=== PATIENT | female | born 1995 | race Caucasian/White ===

== ENCOUNTER 2017-04-24 11:46 | Outpatient (CLI) | payer MEDICAID ==
[~2017-04-24] VITALS: Ht 149.9 cm; Wt 50.0 kg
[~2017-04-24 11:46] MED LIST: PREN1TAB60 PO
[2017-04-24 13:38] LABS: HEMATOCRIT 34.5 % (34.6-47.8); HEMOGLOBIN 11.6 g/dL (11.7-16.4); WHITE BLOOD COUNT 8.8 x10^3/uL (3.4-10)
[2017-04-24 14:02] LABS: HIV 1&2 ANTIBODY SCREEN Nonreactive (Nonreactive); HIV-1 p24 ANTIGEN Nonreactive (Nonreactive)
== END 2017-04-24 14:11 | disposition home or self-care (01) ==
LOC: LDOP 11:46
PROVIDERS: ATTEND Obstetrics & Gynecology
DX: O26.892 Other specified pregnancy related conditions, second trimester (principal); R10.9 Unspecified abdominal pain; Z3A.25 25 weeks gestation of pregnancy
CPT/HCPCS: 36415; 59025; 81001; 82731; 85025; 86592; 86703; 86762; 86850; 86900; 87086; 87340; 87899; 99211; G0435; G0463

== ENCOUNTER 2017-07-17 04:12 | Inpatient (IN) | payer MEDICAID ==
[~2017-07-17] VITALS: Ht 175.3 cm; Wt 61.0 kg
[2017-07-17] MEDS ORDERED: OXYTOCIN 10 UNITS/ML, 1ML ONE (04:18)
[2017-07-17] MEDS ORDERED: OXYTOCIN 30U/ 0.9% NaCL 500ML 500 ML ONE (04:18)
[2017-07-17] MEDS ORDERED: NEWBORN KIT ONE (04:49)
[2017-07-17] MEDS ORDERED: IBUPROFEN 600 MG TABLET ONE (04:54)
[2017-07-17] MEDS ORDERED: OXYcodone/APAP 5/325MG TABLET ONE (04:54)
[2017-07-17] MEDS ORDERED: OXYTOCIN 30U/ 0.9% NaCL 500ML 500 ML IV SCH (04:55)
[2017-07-17] MEDS: OXYTOCIN 30U/ 0.9% NaCL 500ML 500 ML IV SCH ×4 (04:55→09:13)
[2017-07-17] MEDS: IBUPROFEN 600 MG TABLET PO PRN ×3 (04:55→21:04)
[2017-07-17] MEDS: OXYcodone/APAP 5/325MG TABLET PO PRN ×2 (04:55→09:47)
[2017-07-17] MEDS ORDERED: LIDOCAINE 1%, 20ML ONE (04:57)
[2017-07-17] MEDS ORDERED: METHYLERGONOVINE 0.2 MG/ML IM PRN (05:00)
[2017-07-17] MEDS ORDERED: OXYTOCIN 10 UNITS/ML, 1ML IM PRN (05:00)
[2017-07-17] MEDS ORDERED: ACETAMINOPHEN 325 MG TABLET PO PRN (05:00)
[2017-07-17] MEDS ORDERED: CALCIUM CARBONATE 500 MG TAB.CHEW PO PRN (05:00)
[2017-07-17] MEDS ORDERED: ONDANSETRON 2MG/ML, 2ML IV PRN (05:00)
[2017-07-17] MEDS ORDERED: OXYcodone IR 5MG TABLET PO PRN (05:00)
[2017-07-17 06:00] LABS: HEMATOCRIT 34.8 % (34.6-47.8); HEMOGLOBIN 11.8 g/dL (11.7-16.4); WHITE BLOOD COUNT 12.4 x10^3/uL (3.4-10)
[2017-07-17 06:16] LABS: BLOOD UREA NITROGEN 11 mg/dL (7-18)
[2017-07-17 06:17] LABS: ASPARTATE AMINO TRANSFERASE 28 U/L (15-37)
[2017-07-17 08:00] VITALS: BP 128/87
[2017-07-17] MEDS: DOCUSATE 100 MG CAPSULE PO PRN ×2 (09:47→21:04)
[2017-07-17] MEDS: PRENATAL VIT/IRON/FA 1 EACH TABLET PO SCH (09:47)
[2017-07-17 12:35] VITALS: BP 120/71
[2017-07-17 16:33] VITALS: BP 117/76
[2017-07-17 20:25] VITALS: BP 145/87
[2017-07-17] MEDS ORDERED: DIPH,PERTUSS(ACELL),TET VAC/PF NC IM-VACC ONE (20:50)
[2017-07-17] MEDS: ACETAMINOPHEN 325 MG TABLET PO PRN (21:04)
[2017-07-18 00:45] VITALS: BP 99/58
[2017-07-18] MEDS: ACETAMINOPHEN 325 MG TABLET PO PRN ×2 (04:07→09:51)
[2017-07-18] MEDS: IBUPROFEN 600 MG TABLET PO PRN ×2 (04:07→13:16)
[2017-07-18 04:10] VITALS: BP 116/70
[2017-07-18 07:30] VITALS: BP 103/60
[2017-07-18] MEDS: PRENATAL VIT/IRON/FA 1 EACH TABLET PO SCH (09:00)
[2017-07-18] MEDS ORDERED: IBUP-1222 PO (12:18)
== END 2017-07-18 15:47 | disposition home or self-care (01) | DRG 775 ==
LOC: LDOP 04:12 → LDIP 04:14 → 2NW 07:39
PROVIDERS: ADMIT Obstetrics & Gynecology; ATTEND Obstetrics & Gynecology
PROC: 10E0XZZ Delivery of Products of Conception, External Approach (ICD-10-PCS; principal; 2017-07-17)
PROC: 0KQM0ZZ Repair Perineum Muscle, Open Approach (ICD-10-PCS; 2017-07-17)
PROC: 0W8NXZZ Division of Female Perineum, External Approach (ICD-10-PCS; 2017-07-17)
DX: O70.1 Second degree perineal laceration during delivery (principal); Z37.0 Single live birth; Z3A.37 37 weeks gestation of pregnancy
CPT/HCPCS: 36415; 80053; 82248; 84550; 85025; 90715; J2590

== ENCOUNTER 2017-11-13 14:27 | Emergency (ER) | payer MEDICAID ==
[~2017-11-13] VITALS: Ht 149.9 cm; Wt 57.7 kg
[~2017-11-13 14:27] MED LIST changes: +IBUP-1222 PO
[2017-11-13 14:29] VITALS: BP 118/76
== END 2017-11-13 16:56 | disposition home or self-care (01) ==
LOC: ED 16:29
DX: S00.93XA Contusion of unspecified part of head, initial encounter (principal); X58.XXXA Exposure to other specified factors, initial encounter; Y93.89 Activity, other specified; Y92.89 Other specified places as the place of occurrence of the external cause; Y99.8 Other external cause status
CPT/HCPCS: 70100; 99284

== ENCOUNTER 2018-08-15 23:42 | Emergency (ER) | payer MEDICAID ==
[~2018-08-15] VITALS: Ht 149.9 cm; Wt 55.1 kg
[2018-08-15 23:43] VITALS: BP 123/75
[2018-08-16] MEDS ORDERED: AZITHROMYCIN 500 MG TABLET PO ONE
[2018-08-16] MEDS ORDERED: AZITHROMYCIN 250 MG TABLET ONE (00:10)
== END 2018-08-16 00:28 | disposition home or self-care (01) ==
LOC: ED 23:52
DX: J06.9 Acute upper respiratory infection, unspecified (principal); F17.200 Nicotine dependence, unspecified, uncomplicated; H92.03 Otalgia, bilateral
CPT/HCPCS: 99283; J7512

== ENCOUNTER 2018-10-14 21:57 | Emergency (ER) | payer MEDICAID ==
[~2018-10-14] VITALS: Ht 180.3 cm; Wt 60.0 kg
[2018-10-14 22:09] VITALS: BP 124/85
--- NOTE | 2018-10-15 00:10 | NUR ---
pt to room from lobby
--- NOTE | 2018-10-15 00:41 | NUR ---
TASK RN: PT LAYING IN GI[place]GI TERRELL NOTED. FRIEND AT BEDSIDE. ERP AT BEDSIDE FOR INITIAL ASSESSMENT.
[2018-10-15] MEDS ORDERED: LIDOCAINE-MPF 2% ,5ML INFIL ONE (01:00)
[2018-10-15] MEDS ORDERED: LIDOCAINE-MPF 1%, 5ML ONE (01:10)
[2018-10-15 01:51] LABS: CLUE CELLS NONE SEEN (NONE SEEN)
[2018-10-15 01:52] LABS: WET PREP WBCS MODERATE (FEW)
--- NOTE | 2018-10-15 02:15 | NUR ---
REPORT TO BRIAN GALARZA
== END 2018-10-15 02:37 | disposition home or self-care (01) ==
LOC: ED 23:59
DX: N76.2 Acute vulvitis (principal); F17.200 Nicotine dependence, unspecified, uncomplicated
CPT/HCPCS: 87210; 87491; 87591; 87808; 99283

== ENCOUNTER 2019-03-19 03:06 | Outpatient (CLI) | payer MEDICAID ==
[~2019-03-19] VITALS: Ht 149.9 cm; Wt 59.0 kg
[2019-03-19 03:24] VITALS: BP 109/61
[2019-03-19 03:36] LABS: MICROSCOPIC INDICATED
[2019-03-19 03:42] LABS: AMPHETAMINE SCREEN, URINE Negative (Negative); BARBITURATE SCREEN, URINE Negative (Negative); BENZODIAZEPINE SCREEN, URINE Negative (Negative); CANNABINOID SCREEN, URINE Negative (Negative); COCAINE SCREEN, URINE Negative (Negative); METHADONE SCREEN, URINE Negative (Negative); OPIATE SCREEN, URINE Negative (Negative)
[2019-06-14] MEDS ORDERED: IBUP-1222 PO (13:45)
[2019-06-14] MEDS ORDERED: OXYC-302 PO (13:45)
[2019-06-14] MEDS ORDERED: FERR324T5 PO (13:49)
== END 2019-03-19 04:03 | disposition home or self-care (01) ==
LOC: LDOP 03:06
PROVIDERS: ATTEND Obstetrics & Gynecology
DX: O26.892 Other specified pregnancy related conditions, second trimester (principal); R10.9 Unspecified abdominal pain; Z3A.26 26 weeks gestation of pregnancy
CPT/HCPCS: 80307; 81001; 87086; 99211; G0463

== ENCOUNTER 2021-03-19 12:28 | Inpatient (IN) | payer MEDICAID ==
[~2021-03-19] VITALS: Ht 149.9 cm; Wt 60.5 kg
[~2021-03-19 12:28] MED LIST changes: +FERR324T5 PO; +OXYC1TAB14 PO
[2021-03-19] MEDS: LACTATED RINGERS 1,000 ML IV SCH ×2 (12:36→13:14)
[2021-03-19] MEDS ORDERED: TERBUTALINE 1 MG/ML, 1ML SQ PRN (13:00)
[2021-03-19] MEDS ORDERED: TERBUTALINE 1 MG/ML, 1ML IVPush PRN (13:00)
[2021-03-19] MEDS ORDERED: CALCIUM CARBONATE 500 MG TAB.CHEW PO PRN ×2 (13:00→14:00)
[2021-03-19] MEDS ORDERED: ONDANSETRON 2MG/ML, 2ML IVPush PRN (13:00)
[2021-03-19] MEDS: PLEASE ENTER HEIGHT AND WEIGHT MC SCH ×2 (13:00→21:00)
[2021-03-19] MEDS ORDERED: FENTANYL PF 100 MCG/2ML IVPush PRN (13:00)
[2021-03-19] MEDS: D5%-LACTATED RINGERS 1,000 ML IV SCH ×2 (13:00→21:00)
[2021-03-19] MEDS ORDERED: OXYTOCIN 30U/ 0.9% NaCL 500ML 500 ML IV ONE (13:00)
[2021-03-19] MEDS ORDERED: NEWBORN KIT ONE (13:04)
[2021-03-19] MEDS ORDERED: OXYTOCIN 30U/ 0.9% NaCL 500ML 500 ML ONE (13:04)
[2021-03-19 13:20] LABS: BASOPHILS % (AUTO) 0 % (0-1); EOSINOPHILS % (AUTO) 0 % (1-7); LYMPHOCYTES % (AUTO) 14 % (22-44); MEAN CORPUSCULAR HEMOGLOBIN 31.6 pg (27.0-34.8); MEAN CORPUSCULAR HGB CONC 33.9 g/dL (32.4-35.8); MONOCYTES % (AUTO) 7 % (2-9); NEUTROPHILS % (AUTO) 80 % (42-75); PLATELET COUNT 290 x10^3/uL (130-400); RED BLOOD COUNT 3.69 x10^6/uL (3.82-5.3); RED CELL DISTRIBUTION WIDTH 14.3 % (9.6-15.2)
[2021-03-19 13:35] LABS: AMPHETAMINE SCREEN, URINE Negative (Negative); BARBITURATE SCREEN, URINE Negative (Negative); BENZODIAZEPINE SCREEN, URINE Negative (Negative); CANNABINOID SCREEN, URINE Negative (Negative); COCAINE SCREEN, URINE Negative (Negative); METHADONE SCREEN, URINE Negative (Negative); OPIATE SCREEN, URINE Negative (Negative)
[2021-03-19 14:00] VITALS: BP 145/81
[2021-03-19] MEDS ORDERED: SIMETHICONE 80 MG CHEW TAB PO PRN (14:00)
[2021-03-19] MEDS ORDERED: TRANEXAMIC ACID 100 MG/ML, 10ML IV ONE (14:00)
[2021-03-19] MEDS ORDERED: OXYcodone IR 5MG TABLET PO PRN (14:00)
[2021-03-19] MEDS ORDERED: OXYcodone/APAP 5/325MG TABLET PO PRN (14:00)
[2021-03-19] MEDS ORDERED: MISOPROSTOL 200 MCG TABLET PR PRN (14:00)
[2021-03-19] MEDS: IBUPROFEN 600 MG TABLET PO PRN ×2 (14:00→21:19)
[2021-03-19] MEDS ORDERED: OXYTOCIN 10 UNITS/ML, 1ML IM PRN (14:00)
[2021-03-19] MEDS ORDERED: ONDANSETRON 2MG/ML, 2ML IV PRN (14:00)
[2021-03-19] MEDS ORDERED: METHYLERGONOVINE 0.2 MG/ML IM PRN (14:00)
[2021-03-19] MEDS ORDERED: MAGNESIUM HYDROXIDE 8%, 30ML UDC PO PRN (14:00)
[2021-03-19] MEDS: OXYTOCIN 30U/ 0.9% NaCL 500ML 500 ML IV SCH (14:00)
[2021-03-19 16:15] VITALS: BP 126/78
[2021-03-19] MEDS: ACETAMINOPHEN 325 MG TABLET PO PRN (17:10)
[2021-03-19 19:30] VITALS: BP 130/92
[2021-03-19] MEDS: DOCUSATE 100 MG CAPSULE PO PRN (21:19)
[2021-03-19 23:50] VITALS: BP 124/76
[2021-03-20 01:07] LABS: BASOPHILS % (AUTO) 0 % (0-1); EOSINOPHILS % (AUTO) 0 % (1-7); LYMPHOCYTES % (AUTO) 19 % (22-44); MEAN CORPUSCULAR HEMOGLOBIN 32.1 pg (27.0-34.8); MEAN CORPUSCULAR HGB CONC 34.1 g/dL (32.4-35.8); MEAN PLATELET VOLUME 8.2 fL (7.4-10.4); MONOCYTES % (AUTO) 7 % (2-9); NEUTROPHILS % (AUTO) 74 % (42-75); PLATELET COUNT 255 x10^3/uL (130-400); RED BLOOD COUNT 3.31 x10^6/uL (3.82-5.3)
[2021-03-20] MEDS: IBUPROFEN 600 MG TABLET PO PRN ×3 (03:26→17:58)
[2021-03-20 04:15] VITALS: BP 115/64
[2021-03-20] MEDS: LACTATED RINGERS 1,000 ML IV SCH ×2 (05:00→13:00)
[2021-03-20] MEDS: D5%-LACTATED RINGERS 1,000 ML IV SCH ×2 (05:00→13:00)
[2021-03-20] MEDS: PLEASE ENTER HEIGHT AND WEIGHT MC SCH ×2 (05:00→13:00)
[2021-03-20] MEDS: ACETAMINOPHEN 325 MG TABLET PO PRN ×2 (06:45→14:04)
[2021-03-20 07:28] VITALS: BP 134/72
[2021-03-20] MEDS: PRENATAL VIT/IRON/FA 1 EACH TABLET PO SCH (08:11)
[2021-03-20] MEDS: DOCUSATE 100 MG CAPSULE PO PRN (08:12)
[2021-03-20] MEDS: OXYTOCIN 30U/ 0.9% NaCL 500ML 500 ML IV SCH ×2 (10:00)
[2021-03-20 11:47] VITALS: BP 130/87
[2021-03-20 20:15] VITALS: BP 115/74
[2021-03-20] MEDS ORDERED: ROPINIROLE 0.25MG TABLET PO SCH (21:00)
[2021-03-21] MEDS: IBUPROFEN 600 MG TABLET PO PRN ×3 (00:28→17:09)
[2021-03-21] MEDS: DOCUSATE 100 MG CAPSULE PO PRN (07:46)
[2021-03-21] MEDS: PRENATAL VIT/IRON/FA 1 EACH TABLET PO SCH (07:46)
[2021-03-21] MEDS: ACETAMINOPHEN 325 MG TABLET PO PRN (07:46)
[2021-03-21 08:00] VITALS: BP 134/75
[2021-03-21] MEDS ORDERED: BICILLIN-LA 2,400,000 UNITS/4 ML IM ONE (14:00)
== END 2021-03-21 17:30 | disposition home or self-care (01) | DRG 807 ==
LOC: LDOP 12:28 → EDIP 12:46 → LDIP 12:49 → 2NW 16:50
PROVIDERS: ADMIT Obstetrics & Gynecology; ATTEND Obstetrics & Gynecology
PROC: 10E0XZZ Delivery of Products of Conception, External Approach (ICD-10-PCS; principal; 2021-03-19)
DX: O80 Encounter for full-term uncomplicated delivery (principal); Z37.0 Single live birth; Z3A.38 38 weeks gestation of pregnancy
CPT/HCPCS: 36415; 80307; 85025; 86592; 86762; 86780; 86850; 86900; 87340; 87635; 87806; G0378; J0561; G0475; J2590; J7120